=== PATIENT | female | born 1965 | race Asian ===

== ENCOUNTER → 2018-05-10 | Outpatient (CLI) | payer MEDICAID | LOC: FIMAGING 06:58 | PROVIDERS: ATTEND Family Medicine | DX: I10 Essential (primary) hypertension (principal) ==

== ENCOUNTER 2018-05-25 13:35 | Emergency (ER) | payer MEDICAID ==
[2018-05-25] MEDS ORDERED: NS 1,000 ML IV ONE (14:20)
--- NOTE | 2018-05-25 14:21 | EDPHY ---
H & P Smoking Status: Never smoked <Scott Gandhi - Last Filed: 05/25/18 16:59> <Diane Santiago - Last Filed: 05/26/18 15:09> Time Seen by Provider: 05/25/18 14:14 HPI/ROS: CHIEF COMPLAINT: Headache, palpitations and bilateral arm paresthesia HISTORY OF PRESENT ILLNESS: The patient is a 53-year-old female with history of anxiety here chief complaint of sudden onset of headache an hour and half ago. She describes the pain as posterior and throbbing. She has never had a headache like this before. She denies any vision changes, nausea, vomiting. She also reports associated palpitations and bilateral arm paresthesias. She denies any numbness or weakness. REVIEW OF SYSTEMS: Constitutional: No fever, no chills. Eyes: No discharge. ENT: No sore throat. Cardiovascular: No chest pain, no palpitations. Respiratory: No cough, no shortness of breath. Gastrointestinal: No abdominal pain, no vomiting. Genitourinary: No hematuria. Musculoskeletal: No back pain. Skin: No rashes. Neurological: + headache. (Scott Gandhi) Past Medical/Surgical History: Hypertension (Diane Santiago) Social History: PCP: Dr. Cosby (Diane Santiago) Physical Exam: General Appearance: Alert and no distress. Appears anxious Eyes: Pupils equal and round no injection. Respiratory: Chest is nontender, lungs are clear to auscultation. Cardiac: regular rate and rhythm. No lower extremity edema. Gastrointestinal: Abdomen is soft and nontender, no masses, bowel sounds normal. Musculoskeletal: Neck is supple and nontender. No unilateral calf swelling. Extremities have full range of motion and are nontender. Skin: No rashes or lesions. Neuro: Cranial nerves grossly intact. Equal grasp with no ulnar drift. (Scott Gandhi) Constitutional: Initial Vital Signs Temperature (C) 36.7 C 05/25/18 13:51 Heart Rate 88 05/25/18 13:51 Respiratory Rate 18 05/25/18 13:51 Blood Pressure 166/120 H 05/25/18 13:51 O2 Sat (%) 96 05/25/18 13:51 O2 Delivery Mode Room Air Allergies/Adverse Reactions: unk food all Allergy (Uncoded 05/25/18 13:57) Home Medications: Medication Instructions Recorded Estradiol 05/25/18 Hydrochlorothiazide 05/25/18 LORAZEPAM 05/25/18 Losartan Potassium 05/25/18 Medical Decision Making <OksanaGeorgeScott - Last Filed: 05/25/18 16:59> - Diagnostics Imaging: Discussed imaging studies w/ call or contact centre team leader Radiologist, I viewed and interpreted images myself <Diane Santiago - Last Filed: 05/26/18 15:09> - Diagnostics Imaging Results: Head CT 05/25/18 14:19 Impression: Ectatic dominant distal left vertebral artery vs left vertebral artery thrombosis. Recommend CTA for further evaluation. Results discussed with Scott Gandhi at 2:50 PM. Results called to Dr. Darnell. General information for patients regarding this examination can be found at [email or web address]. If you have questions or comments about this report, please contact me at [phone] (hospital) or [phone] (cell). Head CTA 05/25/18 14:51 Impression: 1. There is no hemodynamically significant ICA stenosis. 2. Patent vertebral arteries. 3. Borderline-aneurysmal ascending thoracic aorta, measuring 4.[address] ANGIOGRAPHY OF THE BRAIN: The major vessels of the [place] are well- visualized, and there is no aneurysm, vascular malformation, flow-limiting stenosis, or acute occlusion identified. The distal cervical, petrous, cavernous , and supraclinoid portions of the internal carotid arteries are patent. The A1 and A2 segments are patent, as are the M1, M2, and M3 trifurcation vessels. With regards to the posterior circulation, the distal vertebral arteries are patent, although there is some tortuosity of the left vertebral artery at and above the skull base, and there is a mildly tortuous although nondominant right vertebral artery. There is no evidence of an intracranial vertebral artery thrombosis. The posterior inferior cerebellar arteries, vertebrobasilar confluence, anterior inferior cerebellar arteries, basilar artery, superior cerebellar arteries, and the posterior cerebral arteries are patent. The posterior communicating arteries are congenitally hypoplastic. Impression: Negative CT angiogram of the brain. CT Source Data: The visualized prevertebral soft tissues, and supratentorial and infratentorial structures appear normal. The lung apices are clear. 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 Measurement of carotid stenosis is based on the residual internal carotid diameter with [place] Symptomatic Carotid Endarterectomy Trial (NASCET) based stenosis levels. Findings were discussed with Diane Santiago M.D. at 18:43, on 05/25/2018. Neck CTA 05/25/18 14:52 Impression: 1. There is no hemodynamically significant ICA stenosis. 2. Patent vertebral arteries. 3. Borderline-aneurysmal ascending thoracic aorta, measuring 4.[address] ANGIOGRAPHY OF THE BRAIN: The major vessels of the [place] are well- visualized, and there is no aneurysm, vascular malformation, flow-limiting stenosis, or acute occlusion identified. The distal cervical, petrous, cavernous , and supraclinoid portions of the internal carotid arteries are patent. The A1 and A2 segments are patent, as are the M1, M2, and M3 trifurcation vessels. With regards to the posterior circulation, the distal vertebral arteries are patent, although there is some tortuosity of the left vertebral artery at and above the skull base, and there is a mildly tortuous although nondominant right vertebral artery. There is no evidence of an intracranial vertebral artery thrombosis. The posterior inferior cerebellar arteries, vertebrobasilar confluence, anterior inferior cerebellar arteries, basilar artery, superior cerebellar arteries, and the posterior cerebral arteries are patent. The posterior communicating arteries are congenitally hypoplastic. Impression: Negative CT angiogram of the brain. CT Source Data: The visualized prevertebral soft tissues, and supratentorial and infratentorial structures appear normal. The lung apices are clear. 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 Measurement of carotid stenosis is based on the residual internal carotid diameter with [place] Symptomatic Carotid Endarterectomy Trial (NASCET) based stenosis levels. Findings were discussed with Diane Santiago M.D. at 18:43, on 05/25/2018. (Diane Santiago) ED Course/Re-evaluation: 53-year-old female here with acute onset of headache and palpitations and arm paresthesias. EKG is unremarkable and troponin is negative for ACS she was given IV fluids, Reglan and Benadryl for nausea and headache and her headache resolved. CT scan performed for acute onset of headache and found to be negative for bleed but did note a tortuous vertebral artery and CT was recommended to rule out dissection or aneurysm. Patient was initially agreeable with this plan but then felt very anxious about having IV contrast is uncertain if she has had a reaction to this before. She 1 to pray for awhile to decide if she was going to perform a CTA. I re-evaluated the patient for different times and answered all their questions on each occasion. Patient requested Ativan to be able to feel more calm and then potentially re-evaluate to see if she was ready to perform CT A. The patient was signed out to Dr. Santiago. Pending re-evaluation and CTA results. (Scott Gandhi) 1730: This patient was seen and examined by me. She presents with acute onset of moderate CHOU[place]URY. Neurologic exam is intact and she is currently asymptomatic. She agrees to CTA of the brain and neck. 1845: Remains asymptomatic. She did not have an allergic reaction to the IV contrast. CT scan results discussed with the patient. She has a tortuous vertebral artery, no evidence of dissection or aneurysm. d/w pt possibility of SAH, declines LP, understands that CT/CTA help substantially to r/o SAH, but still a chance of SAH. Competent decision maker, clearly understands the risks and benefits of this decision. Warning signs discussed. (Diane Santiago) Differential Diagnosis: Tension headache, arrhythmia, venous sinus thrombosis, subarachnoid hemorrhage, vertebral artery dissection, aneurysm (Scott Gandhi) - Data Points Laboratory Results: Laboratory Results 05/25/18 14:15 05/25/18 14:15 Medications Given: Discontinued Medications Diphenhydramine HCl (Benadryl Injection) 12.5 mg IVP EDNOW ONE Stop: 05/25/18 14:50 Last Admin: 05/25/18 14:53 Dose: 12.5 mg Sodium Chloride (Ns) 1,000 mls @ 0 mls/hr IV EDNOW ONE; Wide Open PRN Reason: Protocol Stop: 05/25/18 14:21 Last Admin: 05/25/18 14:39 Dose: 1,000 mls Lorazepam (Ativan) 1 mg PO ONCE ONE Stop: 05/25/18 16:59 Last Admin: 05/25/18 17:14 Dose: 1 mg Methylprednisolone Sodium Succinate (Solu-Medrol) 125 mg IVP EDNOW ONE Stop: 05/25/18 16:59 Last Admin: 05/25/18 17:14 Dose: 125 mg Metoclopramide HCl (Reglan Injection) 10 mg IVP EDNOW ONE Stop: 05/25/18 14:49 Last Admin: 05/25/18 14:53 Dose: 10 mg Ondansetron HCl (Zofran Odt) 4 mg PO ONCE ONE Stop: 05/25/18 14:44 Last Admin: 05/25/18 14:50 Dose: Not Given Point of Care Test Results: Chemistry 05/25/18 14:34 POC Troponin I 0.00 ng/mL ng/mL (0.00-0.08) Departure <Scott Gnadhi - Last Filed: 05/25/18 16:59> <Diane Santiago - Last Filed: 05/26/18 15:09> - Departure Disposition: Home, Routine, Self-Care Clinical Impression: Headache Qualifiers: Headache type: unspecified Headache chronicity pattern: acute headache Intractability: not intractable Qualified Code(s): R51 - Headache Condition: Good Instructions: Acute Headache (ED) Additional Instructions: The CT scans are normal. Your aorta (in the chest) is slightly enlarged. Please follow-up with your physician regarding this finding. Referrals: Patel Cosby MD [Primary Care Provider] - As per Instructions
[2018-05-25 14:27] LABS: PLATELET COUNT 300 10^3/uL (150-400)
[2018-05-25] MEDS ORDERED: ONDANSETRON DISINTEGRATING 4 MG TAB PO ONE (14:43)
[2018-05-25] MEDS ORDERED: METOCLOPRAMIDE 10 MG/2 ML VIAL IVP ONE (14:48)
[2018-05-25] MEDS ORDERED: IOPAMIDOL (ISOVUE 370) 100 ML BTL IV ONE (15:00)
[2018-05-25] MEDS ORDERED: methylPREDNISolone SOD SUCC 125 MG/2 ML VIAL IVP ONE (16:58)
[2018-05-25] MEDS ORDERED: LORazepam 1 MG TAB PO ONE (16:58)
[2018-05-25 19:01] VITALS: BP 161/111
--- NOTE | 2018-05-25 19:02 | CPEKG ---
Test Reason : OPEN Blood Pressure : / mmHG Vent. Rate : 072 BPM Atrial Rate : 072 BPM P-R Int : 178 ms QRS Dur : 089 ms QT Int : 437 ms P-R-T Axes : 052 -02 028 degrees QTc Int : 479 ms Sinus rhythm Confirmed by Diane Santiago ([id number]) on 05/25/2018 7:02:13 PM Referred By: Confirmed By:Diane Santiago
== END 2018-05-25 19:00 | disposition home or self-care (01) ==
DX: R51 Headache (principal); E86.9 Volume depletion, unspecified; R93.1 Abnormal findings on diagnostic imaging of heart and coronary circulation; F41.9 Anxiety disorder, unspecified
CPT/HCPCS: 84484-PO; 96374; J1200; J2765; J2930; Q9967